=== PATIENT | male | born 1985 | race Caucasian/White ===

== ENCOUNTER 2018-06-14 13:59 | Emergency (ER) | payer BC, OTHER ==
--- NOTE | 2018-06-14 14:20 | Emergency Department Record ---
History of Present Illness - General Chief complaint: Lower Extremity Pain Stated complaint: LEG PAIN Time Seen by Provider: 06/14/18 14:06 Source: Patient Mode of Arrival: Ambulatory Limitations: No limitations - History of Present Illness Initial comments: The patient is here due to L ankle pain for at least a month. It seems to hurt more when he is standing on it for a long time. The patient denies any calf, posterior knee, or thigh pain or any leg swelling or trauma. He also denies any CP, SOB, or MAURY. The patient does have a hx of Factor V Leiden Deficiency and is concerned about a DVT. MD Complaint: Extremity pain Onset/Timin -: Days(s) Location: Left, Lower Leg Severity scale (1-10): 6 Quality: Aching - Related Data Home Medications Medication Instructions Recorded Confirmed Last Taken Aspirin 325 mg PO DAILY 06/14/18 06/14/18 1 Day Ago ~06/13/18 Allergies Allergy/AdvReac Type Severity Reaction Status Date / Time No Known Drug Allergies Allergy Verified 06/14/18 14:11 Travel Screening - Travel/Exposure Within Last 30 Days Have you traveled within the last 30 days?: No - Travel/Exposure Within Last Year Have you traveled outside the [place] in the last year?: No - Additonal Travel Details Have you been exposed to anyone with a communicable illness?: No - Travel Symptoms Symptom Screening: None Review of Systems Constitutional: Denies: Chills, Fever Eyes: Denies: Eye discharge ENT: Denies: Congestion Respiratory: Denies: Cough, Dyspnea Cardiovascular: Denies: Arrhythmia, Chest pain, Dyspnea on exertion Past Medical History - SOCIAL HISTORY Smoking Status: Never smoker Alcohol Use: Occasional Drug Use: None - RESPIRATORY Hx Respiratory Disorders: Yes Hx Asthma: Yes (as child) - CARDIOVASCULAR Hx Cardio Disorders: No - NEURO Hx Neuro Disorders: No - GI Hx GI Disorders: No - Hx Genitourinary Disorders: No - ENDOCRINE Hx Endocrine Disorders: No Hx Diabetes: No Hx Thyroid Disease: No - MUSCULOSKELETAL Hx Musculoskeletal Disorders: Yes - PSYCH Hx Psych Problems: No - HEMATOLOGY/ONCOLOGY Hx Blood Disorders: Yes (factor 5) Family Medical History Any Significant Family History?: Yes Family Hx Comment (NOT TO BE USED IN PLACE OF ITEMS BELOW): factor 5 with multiple family members Physical Exam - General General Appearance: Alert, Oriented x3, Cooperative, No acute distress - Head Head exam: Atraumatic, Normocephalic, Normal inspection - Eye Eye exam: Normal appearance, PERRL - ENT Throat exam: Normal inspection. negative: Tonsillar erythema, Tonsillar exudate - Neck Neck exam: Normal inspection, Full ROM. negative: Tenderness - Respiratory Respiratory exam: Normal lung sounds bilaterally. negative: Respiratory distress - Cardiovascular Cardiovascular Exam: Regular rate, Normal rhythm, Normal heart sounds - Extremities Extremities exam: Normal inspection, Full ROM, Normal capillary refill, Tenderness (There is mild tenderness to the proximal L lateral ankle area just above the lateral malleolus to the area at the junction of the L middle and distal third of the lower leg. There is no swelling, bruising or edema appreciated.). negative: Calf tenderness, Joint swelling Image of Full Body: 1 - Area of pain and tenderness. - Neurological Neurological exam: Alert, Normal gait. negative: Abnormal gait, Motor sensory deficit Course Vital Signs 06/14/18 14:03 Temperature 98.3 F Pulse Rate 93 H Respiratory 18 Rate Blood Pressure 145/80 Pulse Ox 99 - Reevaluation(s) Reevaluation #1: The patient's xray was neg. Due to his hx of Factor V Leiden disorder I did recommend transfer to a larger hospital for the L leg Doppler. The patient is at this time refusing the transfer. I did explain to him that due to today being Saturday we are not able to perform that test but due to his family hx I clearly do recommend it. The risks of not getting the test are that the patient could have an undiagnosed L leg DVT which could lead to a PE, stroke, disability, OR, and . The patient clearly understands the risks due to having an uncle dying of a PE and accepts the risks. He clearly has proper decision making capacity at this time and understands we cannot be held liable for NOT ordering the necessary testing. He is to proceed to a larger hospital if he changes his mind to obtain the necessary testing. 06/14/18 15:06 Reevaluation #2: At discharge the patient now would like to go up to [facility] ER for the leg doppler. I did discuss the case with Dr. Kim and she does accept the patient in an ER to ER transfer. I do not plan to anticoagulate the patient due to the fact I do feel it is very unlikely the patient has a DVT. He has no edema , or any calf, post knee or thigh tenderness. Also the pain has been present for a month at least and is very reproducible with palpation of the soft tissue. 06/14/18 15:12 Medical Decision Making - Data Complexity MDM Data: X-Ray Ordered and/or Reviewed - Radiology Data Radiology results: Report reviewed (L ankle: Neg) Disposition Disposition: Discharge Clinical Impression: Leg pain, left Disposition: Home, Self-Care Condition: (2) Stable Instructions: Leg Pain (ED) Additional Instructions: Please use Tylenol or Motrin for pain and please go to a larger ER today for the Doppler test. Return to the ER for any worsening symptoms. Forms: Patient Portal Access Time of Disposition: 15:10 Quality - Quality Measures Quality Measures: N/A - Blood Pressure Screening View Details: Yes Does Patient Have Any of the Following: No Blood Pressure Classification: Pre-Hypertensive BP Reading Systolic Measurement: 145 Diastolic Measurement: 80 Screening for High Blood Pressure: < Pre-Hypertensive BP, F/U Documented > [ [id number]] Pre-Hypertensive Follow-up Interventions: Referral to alternative/primary care provider.
--- NOTE | 2018-06-17 12:16 | RADIOLOGY REPORT ---
EXAM: LEFT ANKLE HISTORY: PAIN ALONG THE LATERAL LOWER LEG JUST SUPERIOR TO THE LEFT ANKLE FOR THE PAST TWO MONTHS. THE PAIN IS WORSE WHEN WEIGHT BEARING. NO KNOWN INJURY. TECHNIQUE: Three views of the left ankle were obtained. Comparison: None. FINDINGS: The bones appear intact. There is no visible acute fracture or dislocation. Small marginal osteophytes are present at the distal tibia. There is mild hypertrophic spurring along the dorsal aspect of the calcaneus. There is no visible stress fracture or abnormal periosteal calcification. There is no focal soft tissue swelling. IMPRESSION: NO ACUTE LEFT ANKLE PATHOLOGY IDENTIFIED. JOB NUMBER: [id number] MTDD
== END 2018-06-14 15:23 | disposition home or self-care (01) ==
LOC: ER 13:59
DX: M79.662 Pain in left lower leg (principal); M25.572 Pain in left ankle and joints of left foot; D68.51 Activated protein C resistance
CPT/HCPCS: 99283